=== PATIENT | female | born 1935 | race Caucasian/White ===

== ENCOUNTER → 2024-04-18 11:41 | Outpatient (REF) | payer OTHER, SELFPAY | LOC: RAD 11:41 | PROVIDERS: ATTENDING PHYSICIAN Family Medicine | DX: R05.9 Cough, unspecified (principal) | CPT/HCPCS: 71046 ==

== ENCOUNTER → 2024-04-24 11:11 | Outpatient (REF) | payer OTHER, SELFPAY | LOC: HWRAD 11:11 | PROVIDERS: ATTENDING PHYSICIAN Family Medicine | DX: J01.00 Acute maxillary sinusitis, unspecified (principal) | CPT/HCPCS: 70486 ==

== ENCOUNTER → 2025-05-03 08:18 | Outpatient (REF) | payer OTHER, SELFPAY ==
[2025-05-03 09:21] LABS: Hematocrit 40.8 % (37.0-47.0); Hemoglobin 13.6 g/dL (12.0-16.0); Mean Corp Hgb Conc. 33.3 g/dL (33.0-37.0); Mean Corpuscular Volume 85.5 fL (81.0-99.0); Nucleated Red Blood Cells % 0 %; Platelet Count 128 10^3/uL (130-400); Red Cell Dist. Width 14.6 % (11.5-14.5)
[2025-05-03 09:55] LABS: ALT (SGPT) 12 U/L (0-35); AST (SGOT) 20 U/L (14-36); Albumin 4.0 g/dl (3.5-5.0); Alkaline Phosphatase 74 U/L (38-126); Blood Urea Nitrogen 24 mg/dl (7-17); Calcium 9.8 mg/dl (8.4-10.2); Carbon Dioxide 26 mmol/L (22-30); Chloride 106 mmol/L (98-107); Glucose 100 mg/dl (70-99); HDL Cholesterol 54 mg/dl; LDL Cholesterol, Calculated 90 mg/dl; Potassium 4.3 mmol/L (3.5-5.1); Sodium 139 mmol/L (135-145); Total Protein 6.3 g/dl (6.3-8.2); Very Low Density Lipoprotein 16 mg/dl (0-30); eGFR 48.63
[2025-05-03 10:28] LABS: Vitamin D, 25-OH*** 48.1 ng/mL (30-80)
[2025-05-03 11:29] LABS: Glycohemoglobin (HgbA1c) 5.9 % (4.0-5.6)
== END ==
LOC: REG 08:18
PROVIDERS: ATTENDING PHYSICIAN Family Medicine
DX: E78.49 Other hyperlipidemia (principal); R53.82 Chronic fatigue, unspecified; E11.69 Type 2 diabetes mellitus with other specified complication; E55.9 Vitamin D deficiency, unspecified
CPT/HCPCS: 36415; 80053; 80061; 82306; 83036; 85025